=== PATIENT | female | born 1955 | race Caucasian/White ===

== ENCOUNTER 2022-11-03 20:59 | Emergency (ER) | payer BC, OTHER ==
[2022-11-03 21:15] VITALS: BP 125/77; PULSE 71; RESP 18; TEMP 99; BMI 27.8
[2022-11-04] MEDS ORDERED: ACETAMINOPHEN 500 MG TABLET (FP) PO ONE (00:05)
[2022-11-04] MEDS ORDERED: ACETAMINOPHEN 500 MG TABLET (FP) ONE (00:07)
== END 2022-11-04 00:48 | disposition home or self-care (01) ==
LOC: JERFT 20:59
DX: S82.431A Displaced oblique fracture of shaft of right fibula, initial encounter for closed fracture (principal); M25.461 Effusion, right knee; M25.471 Effusion, right ankle; M25.472 Effusion, left ankle; W01.0XXA Fall on same level from slipping, tripping and stumbling without subsequent striking against object, initial encounter; Y93.89 Activity, other specified; Y92.89 Other specified places as the place of occurrence of the external cause
CPT/HCPCS: 73562-TC-RT-FY; 73610-TC-LT-FY; 73610-TC-RT-FY; 99283-25

== ENCOUNTER 2022-11-07 04:07 | Day surgery (SDC) | payer OTHER, BC ==
[2022-11-05 15:17] VITALS: BMI 27.7
[2022-11-07] MEDS ORDERED: DEXAMETHASONE SOD PHOSPHATE 10 MG/1 ML VIAL ONE (09:00)
[2022-11-07] MEDS ORDERED: BUPIVACAINE HCL/PF 0.5% (5MG/ML) 10 ML VIAL ONE (09:01)
[2022-11-07] MEDS ORDERED: MIDAZOLAM HCL 2 MG/2 ML SINGLE DOSE VIAL ONE (09:05)
[2022-11-07] MEDS ORDERED: ceFAZolin SODIUM 1 GM VIAL IVPB ONE (09:30)
[2022-11-07] MEDS ORDERED: ceFAZolin SODIUM 1 GM VIAL ONE (09:41)
[2022-11-07] MEDS ORDERED: DEXAMETHASONE SOD PHOSPHATE 4 MG/1 ML VIAL ONE (09:43)
[2022-11-07] MEDS ORDERED: ONDANSETRON 4 MG/2 ML VIAL ONE (09:43)
[2022-11-07] MEDS ORDERED: oxyCODONE HCL 5 MG TABLET PO PRN (10:24)
[2022-11-07] MEDS ORDERED: ONDANSETRON 4 MG/2 ML VIAL IVPUSH PRN (10:24)
[2022-11-07] MEDS ORDERED: LACTATED RINGERS SOLUTION 1,000 ML IV SCH (10:30)
[2022-11-07] MEDS ORDERED: ceFAZolin 2 GRAM PREMIX BAG IVPB ONE (10:39)
[2022-11-07] MEDS ORDERED: CEFAZOLIN SODIUM 2 GM in DEXTROSE 5%-WATER - 50 ML IVPB SCH (11:15)
[2022-11-07 12:59] VITALS: RESP 18
[2022-11-07] MEDS ORDERED: CEFAZOLIN SODIUM 2 GM in DEXTROSE 5%-WATER 100 ML IVPB SCH (13:06)
[2022-11-07] MEDS ORDERED: CEFAZOLIN SODIUM 2 GM in DEXTROSE 5%-WATER 100 ML IVPB ONE (17:30)
[2022-11-08 08:43] VITALS: BP 105/64; PULSE 61; TEMP 98.1
[2022-11-08] MEDS ORDERED: ASPIRIN 325 MG ENTERIC COATED TABLET (FP) PO SCH (10:00)
== END 2022-11-08 14:05 | disposition home or self-care (01) ==
LOC: JASU-SURG 04:07 → J6S 17:13 → JASU-SURG 11-08 14:05
PROVIDERS: ATTEND Orthopaedic Surgery
PROC: 0QSJ04Z Reposition Right Fibula with Internal Fixation Device, Open Approach (ICD-10-PCS; principal; 2022-11-07 09:30)
DX: S82.61XA Displaced fracture of lateral malleolus of right fibula, initial encounter for closed fracture (principal); X58.XXXA Exposure to other specified factors, initial encounter; Y93.9 Activity, unspecified; Y92.9 Unspecified place or not applicable; Y99.9 Unspecified external cause status
CPT/HCPCS: 94760; 97116-GP; 97162-GP; C1713; J1100

== ENCOUNTER 2023-03-25 14:30 | Emergency (ER) | payer OTHER, BC ==
[2023-03-25 14:59] VITALS: BP 125/64; PULSE 68; RESP 18; TEMP 98.3
== END 2023-03-25 18:04 | disposition home or self-care (01) ==
LOC: JERFT 14:30
DX: M84.374A Stress fracture, right foot, initial encounter for fracture (principal)
CPT/HCPCS: 73610-TC-RT-FY; 73630-TC-RT-FY; 99283-25

== ENCOUNTER 2023-04-10 04:03 | Day surgery (SDC) | payer OTHER, BC ==
[2023-04-05 09:14] VITALS: BMI 26.7
[2023-04-10] MEDS ORDERED: PROPOFOL 60 ML ONE (15:00)
[2023-04-10] MEDS ORDERED: MIDAZOLAM HCL 2 MG/2 ML SINGLE DOSE VIAL ONE (15:00)
[2023-04-10] MEDS ORDERED: SODIUM CHLORIDE 0.9% P/F 10 ML VIAL IJ ONE (15:00)
[2023-04-10] MEDS ORDERED: ONDANSETRON 4 MG/2 ML VIAL ONE (15:00)
[2023-04-10] MEDS ORDERED: ceFAZolin SODIUM 1 GM VIAL ONE (15:00)
[2023-04-10] MEDS ORDERED: LIDOCAINE HCL/PF 2% SDV 5ML VIAL ONE (15:00)
[2023-04-10] MEDS ORDERED: ceFAZolin SODIUM 1 GM VIAL IVPB ONE (16:04)
[2023-04-10] MEDS ORDERED: SUCCINYLCHOLINE CHLORIDE 200 MG/10 ML SYRINGE ONE (16:09)
[2023-04-10] MEDS ORDERED: LIDOCAINE 1% P/F 10 MG/ML VIAL INF ONE (16:30)
[2023-04-10] MEDS ORDERED: BUPIVACAINE HCL/PF 0.5% (5MG/ML) 10 ML VIAL IJ ONE (16:31)
[2023-04-10] MEDS ORDERED: ePHEDrine SULFATE 50 MG/1 ML AMPULE ONE (18:24)
[2023-04-10] MEDS ORDERED: oxyCODONE HCL 5 MG TABLET PO PRN ×2 (18:34)
[2023-04-10] MEDS ORDERED: LACTATED RINGERS SOLUTION 1,000 ML IV SCH (18:45)
[2023-04-11 13:08] VITALS: BP 112/57; PULSE 63; RESP 18; TEMP 98.2
== END 2023-04-11 15:34 | disposition home or self-care (01) ==
LOC: JASUSAT 04:03 → JASU-SURG 04:03 → J5S 21:11 → JASUSAT 04-11 15:34
PROVIDERS: ATTEND Podiatrist Foot & Ankle Surgery
PROC: 0QSN04Z Reposition Right Metatarsal with Internal Fixation Device, Open Approach (ICD-10-PCS; principal; 2023-04-10 15:30)
DX: S92.341A Displaced fracture of fourth metatarsal bone, right foot, initial encounter for closed fracture (principal); S92.351A Displaced fracture of fifth metatarsal bone, right foot, initial encounter for closed fracture; X58.XXXA Exposure to other specified factors, initial encounter; Y92.9 Unspecified place or not applicable; Y93.9 Activity, unspecified
CPT/HCPCS: 28485; C1713; 73630-TC-RT-FY; 76000-TC-FY; 94760; 97116-GP; 97161-GP; C1734

== ENCOUNTER 2023-10-15 15:38 | Emergency (ER) | payer OTHER, BC ==
[2023-10-15 15:44] VITALS: BP 136/78; PULSE 74; RESP 16; TEMP 97.6; BMI 28.0
[2023-10-15] MEDS ORDERED: ASPIRIN 81 MG CHEWABLE TABLETS ONE (17:05)
[2023-10-15 17:07] LABS: BASO % 0.5 % (0-2.0); EOS % 1.4 % (0-4.5); HEMATOCRIT 40.5 % (32.4-45.2); HEMOGLOBIN 13.6 GM/dL (10.7-15.3); LYMPH % 25.4 % (8-40); MCH 29.8 pg (25.7-33.7); MCHC 33.6 g/dl (32.0-36.0); MEAN CELL VOLUME 88.8 fl (80-96); MEAN PLT VOLUME 8.7 fl (7.5-11.1); MONO % 6.5 % (3.8-10.2); NEUT % 66.2 % (42.8-82.8); PLATELET COUNT 223 10^3/uL (134-434); RBC 4.57 M/mm3 (3.60-5.2); RDW 14.1 % (11.6-15.6); WHITE BLOOD COUNT 7.4 K/mm3 (4.0-10.0)
[2023-10-15 17:11] LABS: INR 0.94 (0.83-1.09); PROTHROMBIN TIME (PATIENT) 10.6 SEC (9.7-13.0)
[2023-10-15] MEDS: ASPIRIN 81 MG CHEWABLE TABLETS PO ONE (17:24)
[2023-10-15 17:25] LABS: POTASSIUM 4.3 mmol/L (3.5-5.1)
[2023-10-15 17:27] LABS: CALCIUM 9.2 mg/dL (8.5-10.1)
[2023-10-15 17:28] LABS: ALBUMIN 3.9 g/dl (3.4-5.0); BLOOD UREA NITROGEN 14.6 mg/dL (7-18); MAGNESIUM 2.3 mg/dL (1.8-2.4)
[2023-10-15 17:31] LABS: CREATININE 0.8 mg/dL (0.55-1.3)
[2023-10-15 17:32] LABS: BILIRUBIN,TOTAL 0.3 mg/dL (0.2-1); TOT PROT 6.6 g/dl (6.4-8.2)
[2023-10-15 17:36] LABS: N-TERMINAL BNP 185.2 pg/ml (5-125)
== END 2023-10-15 21:06 | disposition home or self-care (01) ==
LOC: JER 15:38
DX: R07.89 Other chest pain (principal)
CPT/HCPCS: 36415; 71046-TC-FY; 80053; 83735; 83880; 84484; 85025; 85610; 93005; 93010; 99285-25